=== PATIENT | male | born 1980 | race Hispanic/Latino ===

== ENCOUNTER 2017-06-06 15:34 | Observation (INO) | payer OTHER ==
[2017-06-06 15:34] VITALS: BMI 27.8
[2017-06-06] MEDS ORDERED: Sodium Chloride 0.9% 1,000 ML IV STA (16:35)
--- NOTE | 2017-06-06 16:44 | ED PDOC ---
HPI: Chest Pain Time Seen by Provider: 06/06/17 16:26 Chief Complaint (Nursing): Chest Pain Chief Complaint (Provider): Chest Pain History Per: Patient History/Exam Limitations: no limitations Onset/Duration Of Symptoms: Days (x 2 weeks) Current Symptoms Are (Timing): Still Present Quality: Squeezing Additional Complaint(s): Deshawn Edmonds is a 37 y/o male with a past medical history of hypercholesterolemia, migraines, and chronic back pain, who presents to the ED complaining of left-sided chest pain for 2 weeks, which is constant today. Patient also reports pain to the left ribs, left arm, and bilateral legs. No new back pain, neck pain, shortness of breath, cough, dizziness, numbness, weakness, or headache. Patient reports pain is persistent despite taking baby aspirin prior to arrival. Took ASA today. PMD: Dr. Vasiliy Noble Insulation Installer: Dr. Tobar Past Medical History Reviewed: Historical Data, Nursing Documentation, Vital Signs Vital Signs: Last Vital Signs Temp 98 F 06/06/17 15:40 Pulse 78 06/06/17 15:40 Resp 18 06/06/17 15:40 BP 169/78 H 06/06/17 15:40 Pulse Ox 100 06/06/17 16:50 - Medical History PMH: Back Problems (herniated disk), CAD, Hyperlipidemia, Kidney Stones, Migraine - Surgical History Surgical History: Denies: Coronary Stent Other surgeries: Kidney surgery - Family History Family History: States: Unknown Family Hx - Social History Current smoker - smoking cessation education provided: Yes Alcohol: None Drugs: Denies - Home Medications Home Medications: Ambulatory Orders Medication Instructions Recorded Aspirin [Ecotrin] 1 tab PO DAILY 11/11/15 Cyclobenzaprine [Cyclobenzaprine 10 mg PO TID #30 tab 11/11/15 HCl] Naproxen [Naprosyn] 500 mg PO BID PRN #20 tablet 11/11/15 - Allergies Allergies/Adverse Reactions: Allergies Allergy/AdvReac Type Severity Reaction Status Date / Time No Known Allergies Allergy Verified 11/11/15 19:19 Review of Systems ROS Statement: Except As Marked, All Systems Reviewed And Found Negative Constitutional: Negative for: Fever, Chills Cardiovascular: Positive for: Chest Pain. Negative for: Light Headedness Respiratory: Negative for: Shortness of Breath Gastrointestinal: Negative for: Nausea, Vomiting, Diarrhea Musculoskeletal: Positive for: Arm Pain (Left), Leg Pain (b/l), Other (Left rib pain). Negative for: Neck Pain, Back Pain Neurological: Negative for: Weakness, Numbness, Headache, Dizziness Physical Exam - Reviewed Nursing Documentation Reviewed: Yes Vital Signs Reviewed: Yes - Physical Exam Appears: Positive for: Non-toxic, No Acute Distress Head Exam: Positive for: ATRAUMATIC, NORMAL INSPECTION, NORMOCEPHALIC Skin: Positive for: Normal Color, Warm, Dry. Negative for: Diaphoresis, Pallor Eye Exam: Positive for: EOMI, Normal appearance, PERRL Neck: Positive for: Normal, Painless ROM, Supple Cardiovascular/Chest: Positive for: Regular Rate, Rhythm, Chest Non Tender. Negative for: Murmur Respiratory: Positive for: Normal Breath Sounds. Negative for: Accessory Muscle Use, Respiratory Distress Pulses-Radial (L): 2+ Pulses-Radial (R): 2+ Gastrointestinal/Abdominal: Positive for: Normal Exam, Soft. Negative for: Tenderness Back: Positive for: Normal Inspection. Negative for: L CVA Tenderness, R CVA Tenderness, Vertebral Tenderness Extremity: Positive for: Normal ROM, Capillary Refill (< 2 sec). Negative for: Pedal Edema, Calf Tenderness, Deformity Neurologic/Psych: Positive for: Alert, Oriented (x 3). Negative for: Motor/ Sensory Deficits - Laboratory Results Result Diagrams: 06/06/17 17:13 06/06/17 17:13 Interpretation Of Abn Labs: 12.6 wbc - ECG ECG: Positive for: Interpreted By Me, Viewed By Me ECG Rhythm: Positive for: Normal QRS, Normal ST Segment, Sinus Rhythm O2 Sat by Pulse Oximetry: 100 (RA) Pulse Ox Interpretation: Normal - Radiology X-Ray: Read By Radiologist X-Ray Interpretation: No Acute Disease - Progress ED Course And Treament: 1800: Spoke with Dr. Noble. Will admit tele obs. Pt. pain free currently. Medical Decision Making Medical Decision Making: Time: 16:35 Initial Plan: --EKG --Alcohol serum --Urine drug screen --CMP --Troponin I --CBC w/ differential --PTT --Prothrombin time --Chest x-ray --NS IV 1000 ml at 1000 mls/hr --Morphine 4 mg IV --Reevaluation Scribe Attestation: Documented by Ana Lee, acting as a scribe for Chad Ortiz MD Provider Scribe Attestation: All medical record entries made by the Scribe were at my direction and personally dictated by me. I have reviewed the chart and agree that the record accurately reflects my personal performance of the history, physical exam, medical decision making, and the department course for this patient. I have also personally directed, reviewed, and agree with the discharge instructions and disposition. Disposition - Clinical Impression Clinical Impression: Chest pain - Patient ED Disposition Is Patient to be Admitted: Yes Counseled Patient/Family Regarding: Studies Performed, Diagnosis - Disposition Disposition Time: 18:01 Condition: FAIR - Pt Status Changed To: Hospital Disposition Of: Observation - POA Present On Arrival: None Core Measure Indicators: Chest Pain
[2017-06-06] MEDS ORDERED: Morphine 4 MG/ML VIAL ONE ×2 (17:10→18:08)
[2017-06-06 17:18] LABS: BASO # 0.1 K/uL (0.0-0.2); BASO % 0.5 % (0.0-2.0); EOS # 0.2 K/uL (0.0-0.7); EOS % 1.2 % (0.0-4.0); HEMATOCRIT 46.6 % (35.0-51.0); LYMPH # 4.5 K/uL (1.0-4.3); LYMPH % 35.6 % (20.0-40.0); MEAN CELL VOLUME 91.2 fl (80.0-94.0); MEAN CORPUSCULAR HEMOGLOBIN 30.2 pg (27.0-31.0); MEAN CORPUSCULAR HGB CONC 33.1 g/dL (33.0-37.0); MEAN PLATELET VOLUME 7.6 fl (7.2-11.7); MONO # 0.7 K/uL (0.0-0.8); MONO % 5.7 % (0.0-10.0); NEUT # 7.2 K/uL (1.8-7.0); NRBC % 0.1 % (0.0-0.0); RED CELL DISTRIBUTION WIDTH 12.9 % (11.5-14.5); WHITE BLOOD COUNT 12.6 K/uL (4.8-10.8)
[2017-06-06 17:30] LABS: PARTIAL THROMBOPLASTIN TIME 32.1 Seconds (25.6-37.1)
[2017-06-06] MEDS ORDERED: Morphine 4 MG/ML VIAL IV ONE (17:30)
[2017-06-06 17:35] LABS: ALCOHOL SERUM < 10 mg/dl (0-10); ALKALINE PHOSPHATASE 91 U/L (38-126); ALT/SGPT 66 U/L (21-72); AST/SGOT 34 U/L (17-59); BILIRUBIN,TOTAL 0.5 mg/dl (0.2-1.3); BLOOD UREA NITROGEN 13 mg/dl (9-20); CALCIUM 9.8 mg/dL (8.4-10.2); CARBON DIOXIDE 26 mmol/L (22-30); CHLORIDE 105 mmol/L (98-107); GFR AFRICAN-AMERICAN > 60; GLUCOSE,RANDOM 87 mg/dL (75-110); POTASSIUM 4.2 MMOL/L (3.6-5.0); SODIUM 144 mmol/l (132-148); TOTAL PROTEIN 8.6 G/DL (6.3-8.2)
--- NOTE | 2017-06-06 17:51 | RAD ---
HISTORY: Chest pain and numbness. COMPARISON: 08/26/2013. FINDINGS: LUNGS: No active pulmonary disease. PLEURA: No significant pleural effusion identified, no pneumothorax apparent. CARDIOVASCULAR: Normal. OSSEOUS STRUCTURES: No significant abnormalities. VISUALIZED UPPER ABDOMEN: Normal. OTHER FINDINGS: None. IMPRESSION: No active disease. No significant interval change compared to the prior examination(s).
[2017-06-06 18:04] LABS: ALB/GLOB RATIO 1.4 (1.0-2.1)
[2017-06-06 20:18] LABS: URINE APPEARANCE CLEAR (CLEAR); URINE BILIRUBIN NEGATIVE (NEGATIVE); URINE BLOOD NEGATIVE (NEGATIVE); URINE COLOR YELLOW (YELLOW); URINE GLUCOSE (UA) NEG (Normal); URINE KETONE NEGATIVE (NEGATIVE); URINE LEUKOCYTE ESTERASE NEG Leu/uL (Negative); URINE PROTEIN NEGATIVE (NEGATIVE); URINE UROBILINOGEN 0.2-1.0 mg/dL (0.2-1.0)
[2017-06-06] MEDS: Enoxaparin 40 mg Syringe SC SCH (21:23)
[2017-06-06 21:25] LABS: PARTIAL THROMBOPLASTIN TIME 33.2 Seconds (25.6-37.1)
[2017-06-06 23:28] LABS: THYROID STIMULATING HORMONE 1.99 mIU/ML (0.46-4.68)
[2017-06-07] MEDS ORDERED: UBIDECARENONE 400 MG PO SCH (09:00)
[2017-06-07] MEDS: Enoxaparin 40 mg Syringe SC SCH (09:09)
[2017-06-07 09:30] LABS: BASO % 0.6 % (0.0-2.0); EOS # 0.1 K/uL (0.0-0.7); EOS % 1.5 % (0.0-4.0); HEMATOCRIT 43.5 % (35.0-51.0); LYMPH # 2.9 K/uL (1.0-4.3); LYMPH % 40.2 % (20.0-40.0); MEAN CELL VOLUME 90.2 fl (80.0-94.0); MEAN CORPUSCULAR HEMOGLOBIN 30.3 pg (27.0-31.0); MEAN CORPUSCULAR HGB CONC 33.6 g/dL (33.0-37.0); MEAN PLATELET VOLUME 7.9 fl (7.2-11.7); MONO # 0.3 K/uL (0.0-0.8); MONO % 4.6 % (0.0-10.0); NEUT # 3.9 K/uL (1.8-7.0); NEUT % 53.1 % (50.0-75.0); NRBC % 0.2 % (0.0-0.0); WHITE BLOOD COUNT 7.3 K/uL (4.8-10.8)
[2017-06-07 09:43] LABS: BLOOD UREA NITROGEN 16 mg/dl (9-20); CALCIUM 9.1 mg/dL (8.4-10.2); CARBON DIOXIDE 23 mmol/L (22-30); CHLORIDE 107 mmol/L (98-107); GFR AFRICAN-AMERICAN > 60; GLUCOSE,RANDOM 115 mg/dL (75-110); POTASSIUM 4.2 MMOL/L (3.6-5.0); SODIUM 139 mmol/l (132-148)
[2017-06-07 12:23] VITALS: RESP 20; O2SAT 98
--- NOTE | 2017-06-07 13:50 | CP.PCM.HP ---
History of Present Illness - History of Present Illness History of Present Illness: Patient 37 y/o male with a past medical history of hypercholesterolemia, migraines, and chronic back pain and cervical with radiculitis Patient presented to the ER complaining of left-sided chest pain for 2 weeks, timo pain is precordial with irradiation to the lt arm. Patient also reports pain to the left ribs, left arm, and bilateral legs. No SOB, palpitation, V/N, abdominal pain. Present on Admission - Present on Admission Any Indicators Present on Admission: No Review of Systems - Constitutional Constitutional: As Per HPI - EENT Eyes: As Per HPI - Cardiovascular Cardiovascular: As Per HPI - Respiratory Respiratory: As Per HPI - Gastrointestinal Gastrointestinal: As Per HPI - Musculoskeletal Musculoskeletal: As Per HPI - Neurological Neurological: As Per HPI - Psychiatric Psychiatric: As Per HPI Past Patient History - Infectious Disease Hx of Infectious Diseases: None - Past Medical History & Family History Past Medical History?: Yes - Past Social History Smoking Status: Heavy Smoker > 10 Cigarettes Daily - CARDIAC Hx Hypercholesterolemia: Yes - PULMONARY Hx Respiratory Disorders: No - NEUROLOGICAL Hx Neurological Disorder: Yes Hx Migraine: Yes - HEENT Hx HEENT Problems: No - RENAL Hx Kidney Stones: Yes - ENDOCRINE/METABOLIC Hx Endocrine Disorders: No - HEMATOLOGICAL/ONCOLOGICAL Hx Blood Disorders: No Hx AIDS: No Hx Human Immunodeficiency Virus (HIV): No - INTEGUMENTARY Hx Dermatological Problems: No - MUSCULOSKELETAL/RHEUMATOLOGICAL Hx Back Pain: Yes Hx Falls: No Hx Herniated Disk: Yes - GASTROINTESTINAL Hx Gastrointestinal Disorders: No - GENITOURINARY/GYNECOLOGICAL Hx Genitourinary Disorders: No - PSYCHIATRIC Hx Psychophysiologic Disorder: No Hx Substance Use: No - SURGICAL HISTORY Hx Coronary Stent: No - ANESTHESIA Hx Anesthesia: Yes Hx Anesthesia Reactions: No Hx Malignant Hyperthermia: No Has any member of the family had a problem w/ anesthesia?: No Meds Allergies/Adverse Reactions: Allergies Allergy/AdvReac Type Severity Reaction Status Date / Time No Known Allergies Allergy Verified 11/11/15 19:19 Physical Exam - Constitutional Appears: No Acute Distress - Head Exam Head Exam: ATRAUMATIC, NORMAL INSPECTION, NORMOCEPHALIC - Eye Exam Eye Exam: EOMI - ENT Exam ENT Exam: Mucous Membranes Moist - Respiratory Exam Respiratory Exam: Clear to Auscultation Bilateral - Cardiovascular Exam Cardiovascular Exam: REGULAR RHYTHM, +S1, +S2 - GI/Abdominal Exam GI & Abdominal Exam: Normal Bowel Sounds - Extremities Exam Extremities exam: Positive for: normal inspection - Neurological Exam Neurological exam: Alert, CN II-XII Intact, Normal Gait, Oriented x3, Reflexes Normal - Psychiatric Exam Psychiatric exam: Normal Affect - Skin Skin Exam: Normal Color Results - Vital Signs Recent Vital Signs: Last Vital Signs Temp 97.8 F 06/07/17 12:00 Pulse 52 L 06/07/17 12:00 Resp 20 06/07/17 12:00 BP 130/76 06/07/17 12:00 Pulse Ox 98 06/07/17 12:00 - Labs Result Diagrams: 06/07/17 08:40 06/07/17 08:40 Labs: Laboratory Results - last 24 hr 06/06/17 06/06/17 06/06/17 17:13 17:13 17:13 WBC 12.6 H RBC 5.11 Hgb 15.4 Hct 46.6 MCV 91.2 MCH 30.2 MCHC 33.1 RDW 12.9 Plt Count 258 MPV 7.6 Neut % (Auto) 57.0 Lymph % (Auto) 35.6 [place] % (Auto) 5.7 Eos % (Auto) 1.2 Baso % (Auto) 0.5 Neut # 7.2 H Lymph # 4.[address] [place] # 0.7 Eos # 0.2 Baso # 0.1 PT INR APTT Sodium 144 Potassium 4.2 Chloride 105 Carbon Dioxide 26 Anion Gap 17 BUN 13 Creatinine 1.0 Est GFR ( Amer) > 60 Est GFR (Non-Af Amer) > 60 Random Glucose 87 Calcium 9.8 Total Bilirubin 0.5 AST 34 ALT 66 Alkaline Phosphatase 91 Troponin I < 0.0120 Total Protein 8.6 H Albumin 5.1 H Globulin 3.5 Albumin/Globulin Ratio 1.4 Triglycerides Cholesterol LDL Cholesterol Direct HDL Cholesterol TSH 3rd Generation Urine Color Urine Appearance Urine pH Ur Specific Felt Urine Protein Urine Glucose (UA) Urine Ketones Urine Blood Urine Nitrate Urine Bilirubin Urine Urobilinogen Ur Leukocyte Esterase Urine Opiates Screen Negative Urine Methadone Screen Negative Ur Barbiturates Screen Negative Ur Phencyclidine Scrn Negative Ur Amphetamines Screen Negative U Benzodiazepines Scrn Negative U Oth Cocaine Metabols Negative U Cannabinoids Screen Negative Alcohol, Quantitative < 10 06/06/17 06/06/17 06/06/17 17:13 20:04 20:04 WBC RBC Hgb Hct MCV MCH MCHC RDW Plt Count MPV Neut % (Auto) Lymph % (Auto) [place] % (Auto) Eos % (Auto) Baso % (Auto) Neut # Lymph # [place] # Eos # Baso # PT 11.4 INR 1.0 APTT 32.1 Sodium Potassium Chloride Carbon Dioxide Anion Gap BUN Creatinine Est GFR ( Amer) Est GFR (Non-Af Amer) Random Glucose Calcium Total Bilirubin AST ALT Alkaline Phosphatase Troponin I Total Protein Albumin Globulin Albumin/Globulin Ratio Triglycerides 199 H Cholesterol 132 LDL Cholesterol Direct 69 HDL Cholesterol 29 L TSH 3rd Generation 1.99 Urine Color Yellow Urine Appearance Clear Urine pH 5.0 Ur Specific Felt 1.016 Urine Protein Negative Urine Glucose (UA) Neg Urine Ketones Negative Urine Blood Negative Urine Nitrate Negative Urine Bilirubin Negative Urine Urobilinogen 0.2-1.0 Ur Leukocyte Esterase Neg Urine Opiates Screen Urine Methadone Screen Ur Barbiturates Screen Ur Phencyclidine Scrn Ur Amphetamines Screen U Benzodiazepines Scrn U Oth Cocaine Metabols U Cannabinoids Screen Alcohol, Quantitative 06/06/17 06/06/17 06/07/17 20:20 20:20 08:40 WBC 7.3 RBC 4.83 Hgb 14.6 Hct 43.5 MCV 90.2 MCH 30.3 MCHC 33.6 RDW 13.0 Plt Count 221 MPV 7.9 Neut % (Auto) 53.1 Lymph % (Auto) 40.[address] % (Auto) 4.6 Eos % (Auto) 1.5 Baso % (Auto) 0.6 Neut # 3.9 Lymph # 2.9 [place] # 0.3 Eos # 0.1 Baso # 0.0 PT 11.7 INR 1.1 APTT 33.2 Sodium Potassium Chloride Carbon Dioxide Anion Gap BUN Creatinine Est GFR ( Amer) Est GFR (Non-Af Amer) Random Glucose Calcium Total Bilirubin AST ALT Alkaline Phosphatase Troponin I < 0.0120 Total Protein Albumin Globulin Albumin/Globulin Ratio Triglycerides Cholesterol LDL Cholesterol Direct HDL Cholesterol TSH 3rd Generation Urine Color Urine Appearance Urine pH Ur Specific Felt Urine Protein Urine Glucose (UA) Urine Ketones Urine Blood Urine Nitrate Urine Bilirubin Urine Urobilinogen Ur Leukocyte Esterase Urine Opiates Screen Urine Methadone Screen Ur Barbiturates Screen Ur Phencyclidine Scrn Ur Amphetamines Screen U Benzodiazepines Scrn U Oth Cocaine Metabols U Cannabinoids Screen Alcohol, Quantitative 06/07/17 08:40 WBC RBC Hgb Hct MCV MCH MCHC RDW Plt Count MPV Neut % (Auto) Lymph % (Auto) [place] % (Auto) Eos % (Auto) Baso % (Auto) Neut # Lymph # [place] # Eos # Baso # PT INR APTT Sodium 139 Potassium 4.2 Chloride 107 Carbon Dioxide 23 Anion Gap 13 BUN 16 Creatinine 1.0 Est GFR ( Amer) > 60 Est GFR (Non-Af Amer) > 60 Random Glucose 115 H Calcium 9.1 Total Bilirubin AST ALT Alkaline Phosphatase Troponin I Total Protein Albumin Globulin Albumin/Globulin Ratio Triglycerides Cholesterol LDL Cholesterol Direct HDL Cholesterol TSH 3rd Generation Urine Color Urine Appearance Urine pH Ur Specific Felt Urine Protein Urine Glucose (UA) Urine Ketones Urine Blood Urine Nitrate Urine Bilirubin Urine Urobilinogen Ur Leukocyte Esterase Urine Opiates Screen Urine Methadone Screen Ur Barbiturates Screen Ur Phencyclidine Scrn Ur Amphetamines Screen U Benzodiazepines Scrn U Oth Cocaine Metabols U Cannabinoids Screen Alcohol, Quantitative Assessment & Plan (1) Lumbago Status: Chronic (2) Costochondral chest pain Status: Acute (3) Chest pain Status: Acute (4) Radiculopathy of cervical region Status: Chronic - Assessment and Plan (Free Text) Plan: As per orders. Will follow with cardiology
[2017-06-07 15:34] VITALS: BP 109/68; TEMP 97.7
[2017-06-07 18:51] VITALS: PULSE 52
--- NOTE | 2017-06-07 21:21 | CARD ---
APPROVED REPORT EXAM: Two-dimensional and M-mode echocardiogram with Doppler and color Doppler. Other Information Quality : AverageRhythm : NSR Technically limited study due to smoking. INDICATION Chest Pain 2D DIMENSIONS IVSd1.22 (0.7-1.1cm)LVDd5.04 (3.9-5.9cm) LVOT Diameter2.68 (1.8-2.4cm)PWd0.89 (0.7-1.1cm) IVSs1.31 (0.8-1.2cm)LVDs3.48 (2.5-4.0cm) FS (%) 30.9 %PWs1.01 (0.8-1.2cm) LVEF (%)55.0 (>50%) M-Mode DIMENSIONS Left Atrium (MM)3.21 (2.5-4.0cm)IVSd0.71 (0.7-1.1cm) Aortic Root3.50 (2.2-3.7cm)LVDd6.88 (4.0-5.6cm) Aortic Cusp Exc.2.41 (1.5-2.0cm)PWd1.15 (0.7-1.1cm) IVSs1.47 cmFS (%) 43 % LVDs3.91 (2.0-3.8cm)PWs1.65 cm Mitral Valve MV E Cusstvca60.7cm/sMV DECEL [id number] A Iscltxui79.8cm/s MV [id number] ratio2.0MVA (PHT)2.65cm2 TDI Lateral E' Peak V13.12cm/sMedial E' Peak V9.53cm/sE/Lateral E'4.6 E/Medial E'6.4 LEFT VENTRICLE The left ventricle is normal size. There is borderline concentric left ventricular hypertrophy. The left ventricular function is normal. The left ventricular ejection fraction is within the normal range. There is normal LV segmental wall motion. Transmitral Doppler flow pattern is Grade I-abnormal relaxation pattern. RIGHT VENTRICLE The right ventricle is normal size. There is normal right ventricular wall thickness. The right ventricular systolic function is normal. ATRIA The left atrium size is normal. The right atrium size is normal. AORTIC VALVE The aortic valve is not well visualized. No aortic regurgitation is present. There is no aortic valvular stenosis. MITRAL VALVE The mitral valve is normal in structure. There is no evidence of mitral valve prolapse. There is no mitral valve stenosis. There is no mitral valve regurgitation noted. TRICUSPID VALVE The tricuspid valve is normal in structure. There is no tricuspid valve regurgitation noted. PULMONIC VALVE The pulmonary valve is normal in structure. There is no pulmonic valvular regurgitation. GREAT VESSELS The aortic root is normal in size. The IVC was not visualized. PERICARDIAL EFFUSION There is a trace circumferential pericardial effusion. <Conclusion> There is borderline concentric left ventricular hypertrophy. The left ventricular function is normal. The left ventricular ejection fraction is within the normal range. There is normal LV segmental wall motion. Transmitral Doppler flow pattern is Grade I-abnormal relaxation pattern.
--- NOTE | 2017-06-08 01:18 | CP.PCM.CON ---
History of Present Illness - History of Present Illness History of Present Illness: consultation for chest pain and back pain HPI: Past Patient History - Infectious Disease Hx of Infectious Diseases: None - Past Medical History & Family History Past Medical History?: Yes - Past Social History Smoking Status: Heavy Smoker > 10 Cigarettes Daily - CARDIAC Hx Hypercholesterolemia: Yes - PULMONARY Hx Respiratory Disorders: No - NEUROLOGICAL Hx Neurological Disorder: Yes Hx Migraine: Yes - HEENT Hx HEENT Problems: No - RENAL Hx Kidney Stones: Yes - ENDOCRINE/METABOLIC Hx Endocrine Disorders: No - HEMATOLOGICAL/ONCOLOGICAL Hx Blood Disorders: No Hx AIDS: No Hx Human Immunodeficiency Virus (HIV): No - INTEGUMENTARY Hx Dermatological Problems: No - MUSCULOSKELETAL/RHEUMATOLOGICAL Hx Back Pain: Yes Hx Falls: No Hx Herniated Disk: Yes - GASTROINTESTINAL Hx Gastrointestinal Disorders: No - GENITOURINARY/GYNECOLOGICAL Hx Genitourinary Disorders: No - PSYCHIATRIC Hx Psychophysiologic Disorder: No Hx Substance Use: No - SURGICAL HISTORY Hx Coronary Stent: No - ANESTHESIA Hx Anesthesia: Yes Hx Anesthesia Reactions: No Hx Malignant Hyperthermia: No Has any member of the family had a problem w/ anesthesia?: No Meds Allergies/Adverse Reactions: Allergies Allergy/AdvReac Type Severity Reaction Status Date / Time No Known Allergies Allergy Verified 11/11/15 19:19 Physical Exam - Constitutional Appears: Well - Head Exam Head Exam: ATRAUMATIC, NORMAL INSPECTION, NORMOCEPHALIC - Eye Exam Eye Exam: EOMI, Normal appearance, PERRL Pupil Exam: NORMAL ACCOMODATION, PERRL - ENT Exam ENT Exam: Mucous Membranes Moist, Normal Exam - Neck Exam Neck exam: Positive for: Normal Inspection - Respiratory Exam Respiratory Exam: Clear to Auscultation Bilateral, NORMAL BREATHING PATTERN - Cardiovascular Exam Cardiovascular Exam: REGULAR RHYTHM - GI/Abdominal Exam GI & Abdominal Exam: Normal Bowel Sounds, Soft. absent: Tenderness - Rectal Exam Rectal Exam: NORMAL INSPECTION - Exam Exam: Circumcision, NORMAL INSPECTION External exam: NORMAL EXTERNAL EXAM Speculum exam: NORMAL SPECULUM EXAM Bimanual exam: NORMAL BIMANUAL EXAM - Extremities Exam Extremities exam: Positive for: normal inspection - Back Exam Back exam: NORMAL INSPECTION - Neurological Exam Neurological exam: Alert, CN II-XII Intact, Normal Gait, Oriented x3, Reflexes Normal - Psychiatric Exam Psychiatric exam: Normal Affect, Normal Mood - Skin Skin Exam: Dry, Intact, Normal Color, Warm Results - Vital Signs Recent Vital Signs: Last Vital Signs Temp 97.7 F 06/07/17 15:34 Pulse 52 L 06/07/17 17:55 Resp 20 06/07/17 15:34 BP 109/68 06/07/17 15:34 Pulse Ox 98 06/07/17 15:34 - Labs Result Diagrams: 06/07/17 08:40 06/07/17 08:40 Labs: Laboratory Results - last 24 hr 06/07/17 06/07/17 08:40 08:40 WBC 7.3 RBC 4.83 Hgb 14.6 Hct 43.5 MCV 90.2 MCH 30.3 MCHC 33.6 RDW 13.0 Plt Count 221 MPV 7.9 Neut % (Auto) 53.1 Lymph % (Auto) 40.2 H [place] % (Auto) 4.6 Eos % (Auto) 1.5 Baso % (Auto) 0.6 Neut # 3.9 Lymph # 2.9 [place] # 0.3 Eos # 0.1 Baso # 0.0 Sodium 139 Potassium 4.2 Chloride 107 Carbon Dioxide 23 Anion Gap 13 BUN 16 Creatinine 1.0 Est GFR ( Amer) > 60 Est GFR (Non-Af Amer) > 60 Random Glucose 115 H Calcium 9.1 Assessment & Plan (1) HTN (hypertension) Status: Acute (2) Dyslipidemia Status: Acute (3) Dyslipidemia Status: Acute (4) Abdominal pain Status: Acute (5) Chest pain Status: Acute (6) Costochondral chest pain Status: Acute
[2017-06-08 07:28] LABS: TOTAL PROTEIN, SERUM 6.7 g/dL (6.1-8.1)
--- NOTE | 2017-06-08 19:33 | CARD ---
APPROVED REPORT EKG Measurement Heart [id number] <Conclusion> Normal sinus rhythm Normal ECG
[2017-06-08 20:23] LABS: BETA 1 GLOBULIN 0.4 g/dL (0.4-0.6); BETA 2 GLOBULIN 0.3 g/dL (0.2-0.5); GAMMA GLOBULIN 0.9 g/dL (0.8-1.7)
== END 2017-06-07 18:30 | disposition home or self-care (01) ==
LOC: H.ER 15:34 → H.ERHOLD 17:54 → H.TEL 20:28
PROVIDERS: ADMIT Internal Medicine; ATTEND Internal Medicine
DX: R07.89 Other chest pain (principal); E78.00 Pure hypercholesterolemia, unspecified; E78.5 Hyperlipidemia, unspecified; I25.10 Atherosclerotic heart disease of native coronary artery without angina pectoris; F17.200 Nicotine dependence, unspecified, uncomplicated; M54.12 Radiculopathy, cervical region; G43.909 Migraine, unspecified, not intractable, without status migrainosus; M54.5 Low back pain
CPT/HCPCS: 36415; 71010; 80048; 80053; 80061; 80320; 80324; 80345; 80346; 80349; 80353; 80358; 80361; 81003; 83992; 84155; 84165; 84443; 84484; 85025; 85610; 85730; 93005; 93306; 96360; 99285; G0378; J1650; J2270; J7040